=== PATIENT | female | born 1975 | race Caucasian/White ===

== ENCOUNTER → 2016-10-11 | Outpatient (CLI) | payer OTHER ==
[~2016-10-11] MED LIST: AMLO-110 PO; ASPI81TA21 PO; BCPILLS PO; COLD PO; IBUP-1427 PO; TYLENOL COUGH PO
== END | disposition home or self-care (01) ==
LOC: C.PAPS 14:14
PROVIDERS: ATTEND Obstetrics & Gynecology
DX: Z01.419 Encounter for gynecological examination (general) (routine) without abnormal findings (principal)

== ENCOUNTER 2016-11-10 09:46 | Emergency (ER) | payer OTHER ==
[~2016-11-10] VITALS: Ht 152.4 cm; Wt 54.7 kg
[~2016-11-10 09:46] MED LIST changes: -IBUP-1427 PO
[2016-11-10 09:50] VITALS: TEMP 37.7; Ht 152.4 cm; Wt 54.7 kg
--- NOTE | 2016-11-10 10:18 | EMERGENCY ROOM VISIT NOTE ---
History Report prepared by Camille: Lovely Moore Under the Supervision of: Dr. Zacarias Kelly M.D. First contact with patient: 10:01 Chief Complaint: CHEST PAIN Stated Complaint: CHEST/BACK PAIN History of Present Illness The patient is a 41 year old female who presents to the Emergency Room with complaints of persistent chest pain that began two days ago. She currently rates her discomfort as a 3/10 in severity. The patient notes a history of a pericardial effusion and states that at that time her fingers had turned blue. She states that yesterday she went on a walk and noticed after her fingers were blue. The patient states that she tried drinking water, but states that the blue color persisted. She states that she then developed chest pain that she describes as a heaviness. The patient states that she saw her PCP and Pest Control Chemical Technician yesterday and had a transthoracic echocardiogram that came back normal. She states that this morning she noticed back pain. The patient notes that she uses control, but denies being a smoker. She denies any history of DVT or PE. Source of History: patient Onset: two days ago Position: chest Symptom Intensity: 3/10 Quality: other (heaviness) Timing: other (persistent) Associated Symptoms: + back pain Note: Associated Symptoms: blue fingers Review of Systems All systems have been listed, reviewed, and are negative other than those previously mentioned. Please see Additional Medical History Sheet. Past Medical & Surgical Medical Problems: (1) Endometriosis (2) Pericardial effusion Surgical Problems: (1) Previous section Family History Patient reports no known family medical history. Social History Smoking Status: Never Smoker Drug Use: none Marital Status: Housing Status: lives with family Occupation Status: employed Current/Historical Medications Scheduled Amlodipine (Norvasc), 5 MG PO DAILY Aspirin Enteric Coated (Ecotrin Or Generic), 81 MG PO DAILY Control Pills ( Control Pills), 1 TAB PO DAILY Scheduled PRN Ibuprofen Tab (Motrin), 600 MG PO Q6H PRN for Pain Allergies Coded Allergies: No Known Allergies (Verified , 11/10/16) Physical Exam Vital Signs Date Time Temp Pulse Resp B/P Pulse Ox O2 Delivery O2 Flow Rate FiO2 11/10/16 11:50 70 18 95/70 99 11/10/16 10:42 65 12 103/73 100 Room Air 11/10/16 10:41 69 11/10/16 10:39 96 Room Air 11/10/16 10:35 98 Room Air 11/10/16 09:50 37.7 88 16 118/82 95 Room Air Physical Exam GENERAL: Patient awake, alert, oriented x 3. Patient follows commands. Patient does not appear toxic. Patient is adequately hydrated and well- nourished. SKIN: No erythema, pallor, cyanosis or rash HEENT: Normal head, pupils equal, reactive to light and accommodation. Oral cavity and posterior pharynx appear normal. Neck: Without adenopathy, no neck vein distention. CHEST WALL: Tenderness to 3-4th intercostal space, over the right sternal border. LUNGS: Clear to auscultation. No wheezes, no rales, no rhonchi. HEART: No murmurs. No gallops. No rubs ABDOMEN: No masses, no rebound, no hepatomegaly or splenomegaly. EXTREMITIES: No signs of trauma. No pedal or pretibial edema. No calf or thigh tenderness. NEUROLOGIC: Cranial nerves II-XII within normal limits. No gross motor sensory function deficits. Medical Decision & Procedures Laboratory Results 11/10/16 10:25 Red Blood Count 4.81, Mean Corpuscular Volume 91.3, Mean Corpuscular Hemoglobin 32.6, Mean Corpuscular Hemoglobin Concent 35.8, Mean Platelet Volume 10.7, Neutrophils (%) (Auto) 56.7, Lymphocytes (%) (Auto) 25.2, Monocytes (%) (Auto) 8.8, Eosinophils (%) (Auto) 8.3, Basophils (%) (Auto) 1.0, Neutrophils # (Auto) 2.72, Lymphocytes # (Auto) 1.21, Monocytes # (Auto) 0.42, Eosinophils # (Auto) 0.40, Basophils # (Auto) 0.05 11/10/16 10:25 Test 11/10/16 10:25 11/10/16 10:26 White Blood Count 4.80 K/uL (4.8-10.8) Red Blood Count 4.81 M/uL (4.2-5.4) Hemoglobin 15.7 g/dL (12.0-16.0) Hematocrit 43.9 % (37-47) Mean Corpuscular Volume 91.3 fL (80-100) Mean Corpuscular Hemoglobin 32.6 pg (25-34) Mean Corpuscular Hemoglobin Concent 35.8 g/dl (32-36) Platelet Count 248 K/uL (130-400) Mean Platelet Volume 10.7 fL (7.4-10.4) Neutrophils (%) (Auto) 56.7 % Lymphocytes (%) (Auto) 25.2 % Monocytes (%) (Auto) 8.8 % Eosinophils (%) (Auto) 8.3 % Basophils (%) (Auto) 1.0 % Neutrophils # (Auto) 2.72 K/uL (1.4-6.5) Lymphocytes # (Auto) 1.21 K/uL (1.2-3.4) Monocytes # (Auto) 0.42 K/uL (0.11-0.59) Eosinophils # (Auto) 0.40 K/uL (0-0.5) Basophils # (Auto) 0.05 K/uL (0-0.2) RDW Standard Deviation 41.7 fL (36.4-46.3) RDW Coefficient of Variation 12.3 % (11.5-14.5) Immature Granulocyte % (Auto) 0.0 % Immature Granulocyte # (Auto) 0.00 K/uL (0.00-0.02) Anion Gap 6.0 mmol/L (3-11) Est Creatinine Clear Calc Drug Dose 77.7 ml/min Estimated GFR () 116.6 Estimated GFR (Non- 100.6 BUN/Creatinine Ratio 18.4 (10-20) Calcium Level 8.8 mg/dl (8.5-10.1) Troponin I < 0.015 ng/ml (0-0.045) Bedside D-Dimer 116 ng/mlFEU (0-450) Laboratory results as stated above per my review. ECG Indication: chest pain Rate (beats per minute): 71 Rhythm: normal sinus Findings: no acute ischemic change, no ectopy ED Course 1002: Past medical records reviewed. The patient was evaluated in room A4B. A complete history and physical examination was performed. 1140: I reevaluated the patient and she is doing well. I discussed the exam findings with her and I discussed the treatment plan. She verbalized complete understanding and agreement. She is ready to go home. Medical Decision I considered multiple diagnoses including myocardial infarction, chest wall pain , pericarditis, myocarditis, aortic emergencies, pulmonary embolism, congestive heart failure, GI causes, and other significant cardiopulmonary disorders. Multiple labs and EKG were obtained. Please see above. The patient has a previous diagnosis of peripheral vasospasm which most likely explains her blue fingers yesterday. She also had a transthoracic ultrasound which did not reveal a pericardial effusion which she has had in the past. D- dimer today was not elevated. She also has a 0 PERC score. I do not believe the patient requires a CT of her chest. She has reproducible pain over her third fourth intercostal space at the right sternal border. The patient was given ibuprofen here and will continue that medication at home. She is to follow-up with her family physician. Impression Primary Impression: Acute costochondritis Scribe Attestation The scribe's documentation has been prepared under my direction and personally reviewed by me in its entirety. I confirm that the note above accurately reflects all work, treatment, procedures, and medical decision making performed by me. Departure Information Dispostion Home / Self-Care Prescriptions Ibuprofen Tab (MOTRIN) 600 Mg Tab 600 MG PO Q6H Y for Pain, #20 TAB Prov: Zacarias Kelly M.D. 11/10/16 Referrals Wai Riley M.D. (PCP) Juan CourtneyD.O. Forms HOME CARE DOCUMENTATION FORM, IMPORTANT VISIT INFORMATION Patient Instructions ED Chest Pain Costochondritis, My [facility] Additional Instructions 600 mg ibuprofen every 6 hours until pain has resolved. Apply warm heat to your chest intermittently over the next 3 days. You may continue all of your current prescribed medications.
[2016-11-10 10:39] VITALS: O2SAT 96
[2016-11-10 10:47] LABS: BASO ABS # 0.05 K/uL (0-0.2); COMPLETE YES; EOS % 8.3 %; HEMATOCRIT 43.9 % (37-47); LYMPH % 25.2 %; LYMPH ABS # 1.21 K/uL (1.2-3.4); MEAN CELL VOLUME 91.3 fL (80-100); MEAN CORPUSCULAR HEMOGLOBIN 32.6 pg (25-34); MEAN CORPUSCULAR HGB CONC 35.8 g/dl (32-36); MEAN PLATELET VOLUME 10.7 fL (7.4-10.4); MONO % 8.8 %; NEUT % 56.7 %; PLATELET COUNT 248 K/uL (130-400); RED BLOOD COUNT 4.81 M/uL (4.2-5.4)
[2016-11-10 11:12] LABS: CALCIUM 8.8 mg/dl (8.5-10.1)
[2016-11-10 11:15] LABS: BLOOD UREA NITROGEN 14 mg/dl (7-18); BUN/CREATININE RATIO 18.4 (10-20); CARBON DIOXIDE 28 mmol/L (21-32); CHLORIDE 106 mmol/L (98-107); CREATININE 0.74 mg/dl (0.60-1.20); GLUCOSE 82 mg/dl (70-99); POTASSIUM 4.7 mmol/L (3.5-5.1); SODIUM 140 mmol/L (136-145)
[2016-11-10] MEDS ORDERED: IBUP-1427 PO (11:41)
[2016-11-10 11:50] VITALS: BP 95/70; PULSE 70; O2SAT 99
== END 2016-11-10 11:52 | disposition home or self-care (01) ==
LOC: C.EDB 09:47 → C.EDA 11:52
DX: M94.0 Chondrocostal junction syndrome [Tietze] (principal)

== ENCOUNTER → 2017-04-03 | Outpatient (CLI) | payer OTHER ==
[~2017-04-03] MED LIST changes: -COLD PO; +IBUP-1427 PO; -TYLENOL COUGH PO
--- NOTE | 2017-04-06 07:45 | MAMMOGRAPHY REPORT ---
BILATERAL DIGITAL SCREENING MAMMOGRAM TOMOSYNTHESIS WITH CAD: 04/03/2017 CLINICAL HISTORY: Routine screening. Patient has no complaints. TECHNIQUE: Breast tomosynthesis in addition to standard 2D mammography was performed. Current study was also evaluated with a Computer Aided Detection (CAD) system. COMPARISON: Comparison is made to exams dated: 03/28/2016 mammogram, 03/24/2015 mammogram, 06/04/2012 ultrasound biopsy, 05/25/2012 ultrasound, and 05/25/2012 mammogram - [facility]. BREAST COMPOSITION: There are scattered areas of fibroglandular density in both breasts. FINDINGS: There is a stable ribbon-shaped biopsy marker clip in the central left breast. Stable asym metry in the lateral right breast. No suspicious mass, architectural distortion or cluster of microc alcifications is seen. IMPRESSION: ACR BI-RADS CATEGORY 1: NEGATIVE There is no mammographic evidence of malignancy. A 1 year screening mammogram is recommended. The pa tient will receive written notification of the results. Approximately 10% of breast cancers are not detected with mammography. A negative mammographic report should not delay biopsy if a clinically suggestive mass is present. Laura Tanner M.D. ay/:04/04/2017 16:45:39 Shoe Sprayer: Aliya Degroot, [facility] letter sent: Normal 1/2 BI-RADS Code: ACR BI-RADS Category 1: Negative
== END | disposition home or self-care (01) ==
LOC: C.MAMM 09:13
PROVIDERS: ATTEND Family Medicine
DX: Z12.31 Encounter for screening mammogram for malignant neoplasm of breast (principal)